=== PATIENT | male | born 1955 | race Two or more races ===

== ENCOUNTER 2025-02-05 11:27 | Inpatient (IN) | payer MEDICARE, SELFPAY ==
[2025-02-05 11:37] VITALS: BP 142/89; PULSE 100; RESP 18; TEMP 36.9; O2SAT 98; BMI 26.1
--- NOTE | 2025-02-05 11:49 | XR_ITS ---
Examination: CT abdomen and pelvis without contrast. Coronal 3-D reconstructions. Sagittal 2-D reconstructions. Date and time of exam:February 05, 2025, 1217 hours INDICATIONS: Lower abdominal pain with no bowel movement 2 days, difficulty urinating today CTDI: vol (mGy): 6.53 DLP: (mGycm): 415 Technique: Axial images of the abdomen have been obtained, 3 mm slice thickness Intravenous contrast material has not been administered. Low dose protocols were performed. One or more of the following dose reduction techniques were used; automated exposure control, adjustment of the mA and/or KV according to patient size, use of iterative reconstruction technique. Findings: No focal liver or splenic lesions Suspicious for tiny gallstones No pancreatic or adrenal mass Minimal bilateral hydronephrosis, no renal or ureteral calculi Aorta normal size Abundant air and stool in the right colon Normal appendix Colonic diverticulosis Distended urinary bladder, likely secondary to prostatomegaly, mediolateral dimension 6 cm Large fat-containing left inguinal hernia Prominent osteopenia IMPRESSION: Minimal bilateral hydronephrosis, likely secondary to distended urinary bladder Significant prostatomegaly, likely producing the distended urinary bladder
--- NOTE | 2025-02-05 11:49 | PD.EDRME ---
Rapid Medical Screening Exam RME Arrival date/time: 02/05/25 11:27 69-year-old male with no known medical history presents to the emergency room with a chief complaint of abdominal distention and pain x 3 days I have greeted and performed a focused initial assessment of this patient. A comprehensive ED assessment and evaluation of the patient, analysis of all test results, and completion of the medical decision making process will be conducted by additional ED providers. Chief Complaint: General Adult/Misc Complain Time Seen by Provider: 02/05/25 11:35 Vital signs: Vital Signs Temperature 98.5 F 02/05/25 11:37 Pulse Rate 100 02/05/25 11:37 Respiratory Rate 18 02/05/25 11:37 Blood Pressure 142/89 H 02/05/25 11:37 Pulse Oximetry (%) 98 02/05/25 11:37 Oxygen Delivery Method Room Air 02/05/25 11:37 Vital signs reviewed by provider: Yes
[2025-02-05 12:41] LABS: Collection Type, Urine Clean Catch
[2025-02-05 12:48] LABS: Bilirubin,Urine Negative (Negative); Blood,Urine Negative (Negative); Clarity,Urine Clear (Clear/Hazy); Color,Urine Yellow (Lt Yel-Yel); Glucose, Urine Negative (Negative); Ketones,Urine Negative (Negative); Leukocyte Esterase,Urine Negative (Negative); Nitrite,Urine Negative (Negative); PH,Urine 5.0 (5.0-7.0); Protein,Urine Negative (Neg - Trace); RBC,Urine 1 /hpf (0-3); Specific Gravity,Urine 1.011 (1.001-1.035); Squamous Epithelial Cell,Urine 1 /hpf (0-5); Urobilinogen,Urine Negative mg/dL (0.0-1.0); WBC,Urine 1 /hpf (0-5)
[2025-02-05 12:58] LABS: Basophils # (Auto) 0.0 Thou/mm3 (0.0-0.2); Basophils % (Auto) 0 % (0-2.5); Eosinophils # (Auto) 0.0 Thou/mm3 (0.0-0.5); Eosinophils % (Auto) 0 % (0-10); Hematocrit 42.9 % (41.0-53.0); Hemoglobin 14.6 g/dL (13.5-16.0); Immature Granulocytes Auto 0.08 Thou/mm3 (0.00-0.00); Lymphocytes # (Auto) 0.6 Thou/mm3 (1.0-4.8); Lymphocytes % (Auto) 4 % (10-50); Mean Corpuscular HGB Conc 34.0 g/dl (31.0-37.0); Mean Corpuscular Hemoglobin 29.0 pg (25.0-35.0); Mean Corpuscular Volume 85 fL (80-100); Monocytes # (Auto) 1.1 Thou/mm3 (0.0-0.8); Monocytes % (Auto) 7 % (0-12); Neutrophils # (Auto) 13.7 Thou/mm3 (1.8-7.7); Neutrophils % (Auto) 88 % (37-80); Nucleated Red Blood Cell # 0.00 Thou/mm3 (0.00-0.00); Nucleated Red Blood Cell % 0 /100 WBC (0); Platelet Count 220 Thou/mm3 (140-440); RDW Standard Deviation 38.2 fL (35.1-43.9); Red Blood Count 5.03 Miln/mm3 (4.50-5.90); White Blood Count 15.5 Thou/mm3 (3.8-10.6)
[2025-02-05 13:16] LABS: Alanine Aminotransferase 21 U/L (10-49); Albumin, Serum 4.5 gm/dL (3.4-4.8); Albumin/Globulin Ratio 1.5 (1.2-2.2); Alkaline Phosphatase 84 U/L (46-116); Anion Gap 16 (7-16); Aspartate Amino Transferase 16 U/L (0-34); BUN/Creatinine Ratio 9 Ratio (12-20); Bilirubin,Total 1.3 mg/dL (0.3-1.2); Blood Urea Nitrogen 79 mg/dL (9-23); Calcium 9.8 mg/dL (8.3-10.6); Calcium (Corrected) 9.8 mg/dL (8.5-10.1); Carbon Dioxide 19.4 mMol/L (20.0-31.0); Chloride 99 mMol/L (98-107); Creatinine (Component) 9.0 mg/dL (0.6-1.3); Estimated Creatinine Clearance 7.0 mL/min (>60); Globulin 3.0 gm/dL (2.3-3.5); Glucose 141 mg/dL (74-106); Lipase 34 U/L (12-53); Osmolality,Calculated 293 (275-295); Potassium 4.4 mMol/L (3.4-5.1); Sodium 134 mMol/L (136-145); Total Protein 7.5 gm/dL (5.7-8.2); eGFR 6 See Note
--- NOTE | 2025-02-05 13:26 | PD.EDADULT ---
ED General RME/HPI General Chief complaint: General Adult/Misc Complain Stated complaint: DIFF URINATING, NO BM X 2 DAYS; SENT BY [facility] [address] Time Seen by Provider: 02/05/25 11:35 Arrival date/time: 02/05/25 11:27 RME / HPI RME / HPI narrative: 02/05/25 11:27 69-year-old male with no known medical history presents to the emergency room with a chief complaint of abdominal distention and pain x 3 days I have greeted and performed a focused initial assessment of this patient. A comprehensive ED assessment and evaluation of the patient, analysis of all test results, and completion of the medical decision making process will be conducted by additional ED providers. Related Data Allergies Allergy/AdvReac Type Severity Reaction Status Date / Time No Known Allergies Allergy Verified 02/05/25 11:30 Course Orders Category Date Time Status Post Void Residual ONCE Care 02/05/25 11:[address] abdomen pelvis wo con Stat Exams 02/05/25 11:49 Completed CBC Stat Lab 02/05/25 12:43 Completed CMP [Comprehensive Metabolic Panel] Stat Lab 02/05/25 12:43 Received Lipase Stat Lab 02/05/25 12:43 Received UA [Urinalysis] Stat Lab 02/05/25 12:32 Completed Urine Culture Stat Lab 02/05/25 12:32 Received Vital Signs Vital signs: Vital Signs Temperature 98.5 F 02/05/25 11:37 Pulse Rate 100 02/05/25 11:37 Respiratory Rate 18 02/05/25 11:37 Blood Pressure 142/89 H 02/05/25 11:37 Pulse Oximetry (%) 98 02/05/25 11:37 Oxygen Delivery Method Room Air 02/05/25 11:37 Discharge Plan Patient/Caregiver Discharge Instructions Print Language: Polish
[2025-02-05 14:20] VITALS: BP 164/95; PULSE 105; RESP 18; TEMP 37.1; O2SAT 95
--- NOTE | 2025-02-05 15:07 | PD.EDADULT ---
ED General RME/HPI General Chief complaint: General Adult/Misc Complain Stated complaint: DIFF URINATING, NO BM X 2 DAYS; SENT BY [facility] Time Seen by Provider: 02/05/25 11:35 Arrival date/time: 02/05/25 11:27 Chief complaint is abdominal distention with pain, and inability to urinate a full stream over the past 3 to 4 days. Patient denies fever chills chest pain shortness of breath or difficulty breathing. Patient has no nausea or vomiting. RME / HPI RME / HPI narrative: 02/05/25 11:27 69-year-old male with no known medical history presents to the emergency room with a chief complaint of abdominal distention and pain x 3 days I have greeted and performed a focused initial assessment of this patient. A comprehensive ED assessment and evaluation of the patient, analysis of all test results, and completion of the medical decision making process will be conducted by additional ED providers. Related Data Allergies Allergy/AdvReac Type Severity Reaction Status Date / Time No Known Allergies Allergy Verified 02/05/25 11:30 Review of Systems Review of Systems Narrative Review of Systems: GEN: No fever, no chills, no weight loss EYES: No discharge, no visual changes, no pain HEENT: No ear pain, no congestion, no sore throat PULM: No shortness of breath, no cough, no congestion CV: No chest pain, no dyspnea on exertion, no palpitations GI: No nausea, no vomiting, no diarrhea, + pain, no constipation : No frequency, no urgency, no dysuria MUSC/SKEL: No joint pain, no back pain SKIN: No rash PSYCH: No hallucinations, no depression HEME/LYMPH: No easy bleeding or bruising tendencies NEURO: No weakness, no headache Past Medical History Past Medical History CARDIAC: Negative Congestive Heart Failure RESPIRATORY: Negative Chronic Obstructive Pulmonary Disease (COPD) GENITOURINARY: Negative Renal Disease ENDOCRINE: Negative Diabetes Mellitus Type 1 or Diabetes Mellitus Type 2 Social History SMOKING STATUS: Never smoker SUBSTANCE USE: does not use ED Exam Narrative Physical exam: [General: Mild discomfort but not in any acute distress Head normocephalic HEENT: Within acceptable limits Neck is supple nontender Chest equal chest rise nontender to palpation Respiratory: Clear to auscultation no wheezes crackles or rubs CV: Rate rhythm is regular no murmurs rubs or clicks Abdomen is mildly distended soft mildly tender, positive bowel sounds all 4 quadrants Back: No CVA tenderness no spinous process tenderness from cervical spine thoracic and lumbar spine Skin: Intact no petechiae rash induration ulceration or crepitus Extremities: Moving all extremity against resistance cap refill less than 2 seconds neurosensory intact Neuro: Awake alert oriented x3 Glascow coma 15 no focal deficits] Course Course Course Narrative: Patient's obstructive uropathy is severe enough causing the creatinine to be 9.7 at this time patient's case discussed with Dr. Gregory Hightower, resident for Dr. Calixto who agrees to accept the patient for admission. Patient is agreement with this plan Quality Measures none Orders Category Date Time Status Boone [Urinary Catheter] QS Care 02/05/25 14:59 Active Post Void Residual ONCE Care 02/05/25 11:[address] abdomen pelvis wo con Stat Exams 02/05/25 11:49 Completed CBC Stat Lab 02/05/25 12:43 Completed CMP [Comprehensive Metabolic Panel] Stat Lab 02/05/25 12:43 Completed Lipase Stat Lab 02/05/25 12:43 Completed UA [Urinalysis] Stat Lab 02/05/25 12:32 Completed Urine Culture Stat Lab 02/05/25 12:32 Received Lidocaine Jelly 2% Urojet [Xylocaine Jelly 2% Urojet] Med 02/05/25 15:06 Discontinued See Dose Instructions TOP X1 ONE Sodium Chloride 0.9% 1000 ml [Ns] 1,000 ml Med 02/05/25 15:36 Active IV 85 mls/hr Vital Signs Vital signs: Vital Signs Temperature 98.5 F 02/05/25 11:37 Pulse Rate 100 02/05/25 11:37 Respiratory Rate 18 02/05/25 11:37 Blood Pressure 142/89 H 02/05/25 11:37 Pulse Oximetry (%) 98 02/05/25 11:37 Oxygen Delivery Method Room Air 02/05/25 11:37 Discharge Plan Plan Patient Disposition: Other Care w/in Hosp ([facility]) Prescriptions/Referrals Referrals: Tomas Mantilla MD [Primary Care Provider, Family Practice] - In 1 week Problem List Clinical Impression: Obstruction, uropathy, JORGE LUIS (acute kidney injury) Patient/Caregiver Discharge Instructions Print Language: Faroese Stand Alone Forms: She Award Info., Patient Portal Info Letter PA/FERRYBOAT PILOT Supervising Physician DAMON Supervising Physician: Lazaro LAMBP [facility] Clinical Information Provided by: patient Medical Records reviewed [facility] Meds/Rx considered, not ordered None Labs/Rad/Tests considered, not ordered None Labs Labs: interpreted by me Lab(s) Interpretation(s): CBC shows a mild leukocytosis of 15.5. H&H is unremarkable no thrombocytopenia. CMP shows a sodium 134 CO2 of 19.4 BUN of 79 creatinine of 9.0. Glucose of 141. T. bili at 1.3 no transaminitis. Urine is unremarkable for urinary tract infection. Lipase within acceptable limits. Imaging Imaging interpretation: interpreted by [facility] Interpretation(s): CT shows a moderate bilateral hydronephrosis secondary to urine retention of the enlarged bladder. Medication Administration(s) Medication Administration History Sodium Chloride (Ns) 1,000 mls @ 85 mls/hr IV .[id number] ANDREA Stop: 03/07/25 15:35 Last Admin: 02/05/25 15:48 Dose: 85 mls/hr Documented By: EF Discontinued Medications Lidocaine HCl (Lidocaine Jelly 2% (Urojet) 10 Ml Tube) 0 ml TOP X1 ONE Stop: 02/05/25 15:07 Last Admin: 02/05/25 15:22 Dose: 10 ml Documented By: EF
[2025-02-05] MEDS: LIDOCAINE JELLY 2% (Urojet) 10 ML TUBE TOP (15:22)
[2025-02-05] MEDS: SODIUM CHLORIDE 0.9% 1000 ML 1,000 ML 85 ML IV (15:48)
[2025-02-05 16:20] VITALS: BP 139/81; PULSE 85; TEMP 36.3; O2SAT 92
--- NOTE | 2025-02-05 16:23 | PD.RESHP ---
Documentation for date of: 02/05/25 HPI History of Present Illness Chief complaint: Decreased urine output and abdominal pain History of present illness: A 69-year-old male with no significant past medical history presented to the hospital with chief complaints of lower abdominal pain and decreased urine output. Patient does not follow any primary care provider and does not take any medication. He was noted to have urinary problems since many months but does not want to follow-up with any doctor. Since last week, patient noted to have urinary retention and was able to urinate very minimal amount and also started to develop abdominal pain which got worsened for which patient went to see primary care doctor in [facility]. Patient was noted to have severe abdominal distention and tenderness for which she was referred to our emergency department. In the ED, Boone catheter was placed following which 1.1 L of urine is drained and noted to have significant improvement in the abdominal pain ED course: - Vitals at the time of admission are stable except for mildly elevated blood pressures 142/89 mmHg - Labs at the time of admission are significant for WBC 15.5, sodium 134, bicarb 19.4, BUN 79, creatinine 9, glucose 141 - Abdomen/pelvis CT Showed minimal bilateral hydronephrosis, likely secondary to distended urinary bladder. Noted significant prostamegaly -Patient is admitted in the hospital for JORGE LUIS, likely secondary to obstructive uropathy from BPH Past medical history: Not significant Past surgical history: Not significant Social history: Denies smoking, other illicit drug abuse. Social drinker Allergies: NKDA Review of Systems Review of Systems Systems Reviewed: All systems reviewed, normal except as documented Exam Vital Signs Temp Pulse Resp BP Pulse Ox O2 Del Method 98.8 F 105 H 18 164/95 H 95 Room Air 02/05/25 14:20 02/05/25 14:20 02/05/25 14:20 02/05/25 14:20 02/05/25 14:20 02/05/25 14:20 Narrative Exam General: Awake. HEENT: Normocephalic, atraumatic, mucous membranes moist. Heart: Regular rate and rhythm, no murmurs. noted deformity in the chest Lungs: Clear to auscultation with no wheezing or crackles. Abdomen: Soft, nondistended, nontender, positive bowel sounds. ?No guarding or rebound tenderness. Neurologic: Alert and oriented x3, no gross neurological deficit, and patient able to move all 4 extremities. Extremities: No edema. Skin: No rash or ecchymoses. Results: Labs 02/06/25 04:50 02/06/25 15:48 Labs: Short CBC 02/05/25 Range/Units 12:43 WBC 15.5 H (3.8-10.6) Thou/mm3 Hgb 14.6 (13.5-16.0) g/dL Hct 42.9 (41.0-53.0) % Plt Count 220 (140-440) Thou/mm3 BMP 02/05/25 12:43 Sodium 134 L Potassium 4.4 Chloride 99 Carbon Dioxide 19.4 L BUN 79 H Creatinine 9.0 H* Glucose 141 H Calcium 9.8 Liver Function 02/05/25 Range/Units 12:43 Total Bilirubin 1.3 H (0.3-1.2) mg/dL AST 16 (0-34) U/L ALT 21 (10-49) U/L Alkaline Phosphatase 84 (46-116) U/L Albumin 4.5 (3.4-4.8) gm/dL Urine 02/05/25 Range/Units 12:32 Urine Color Yellow (Lt Yel-Yel) Urine Clarity Clear (Clear/Hazy) Urine pH 5.0 (5.0-7.0) Ur Specific [place] 1.011 (1.001-1.035) Urine Protein Negative (Neg - Trace) Urine Glucose (UA) Negative (Negative) Quality Measures Quality Measures none Advance care planning discussed with:: patient Medications Home Medications and Allergies Home Medications ?Medication ?Instructions ?Recorded ?Confirmed ?Type No Known Home Medications 02/05/25 02/05/25 History Allergies Allergy/AdvReac Type Severity Reaction Status Date / Time No Known Allergies Allergy Verified 02/05/25 11:30 Visit Medications Sodium Chloride (Ns) 1,000 mls @ 85 mls/hr IV .[id number] ANDREA Stop: 03/07/25 15:35 Last Admin: 02/05/25 15:48 Dose: 85 mls/hr Discontinued Medications Lidocaine HCl (Lidocaine Jelly 2% (Urojet) 10 Ml Tube) 0 ml TOP X1 ONE Stop: 02/05/25 15:07 Last Admin: 02/05/25 15:22 Dose: 10 ml Assessment & Plan Plan A 69-year-old male with no significant past medical history presented to the hospital with chief complaints of lower abdominal pain and decreased urine output. # JORGE LUIS 2/2 to obstruction/prostamegaly - Presented with chief complaints of lower abdominal pain and decreased urine output. - Noted to have urinary problems since many months but does not want to follow-up with any doctor. Since last week, patient noted to have urinary retention and was able to urinate very minimal amount and also started to develop abdominal pain which got worsened for which patient went to see primary care doctor in [facility]. - Patient was noted to have severe abdominal distention and tenderness for which she was referred to our emergency department. - In the ED, Boone catheter was placed following which 1.1 L of urine is drained and noted to have significant improvement in the abdominal pain - Vitals at the time of admission are stable except for mildly elevated blood pressures 142/89 mmHg - Labs at the time of admission are significant for WBC 15.5, sodium 134, bicarb 19.4, BUN 79, creatinine 9, glucose 141 - Abdomen/pelvis CT Showed minimal bilateral hydronephrosis, likely secondary to distended urinary bladder. Noted significant prostamegaly Plan - Will continue Boone catheter - Strict intake and output - Will continue to monitor renal functions - Started on tamsulosin 0.4 mg daily and finasteride 5 mg daily - Will continue maintenance fluids, NS @ 85ml/hr - Ultrasound kidneys were ordered - Will avoid nephrotoxic medications and renally dose medications # Metabolic acidosis - Bicarb at the time of admission is 19.4 - Likely from the JORGE LUIS Plan -Will continue to monitor renal functions # Leukocytosis - WBC at the time of admission is 15.5 - Patient does not have any symptoms suggestive of infection, likely reactive in the setting of the pain and urinary retention Plan - Will continue to monitor CBC Hospital Maintenance: Dispo: Medsurg DVT ppx: SCD GI ppx: not needed Diet: Renal IV lines: Peripheral Code status: Full Patient plan of care was discussed with the attending physician, Dr. Marily Chiang, PGY2 Attending Provider Attestation/Addendum After examination of the patient and review of the clinical data I feel that this patient needs admission to the hospital for further treatment/evaluation. I have discussed and was present for the essential components of the history, physical examination, diagnosis, and treatment plan with the resident. I agree with the patient's care as documented by the resident and amended herein by me. Valerio Calixto DO. Although this document has been carefully reviewed, there may still be some phonetic and other typographical errors. These errors are purely grammatical due to imperfections in the software program and should not be construed in any way to compromise the substance of the patient's medical care during this visit.
--- NOTE | 2025-02-05 17:13 | XR_ITS ---
Examination: Retroperitoneal ultrasound, complete Technique: Multiple high resolution grayscale images of the retroperitoneum obtained, including kidneys and bladder. Exam date and time:February 05, 2025, 1727 hrs. Indications: Difficulty urinating today, significant prostatomegaly on CT pelvis study today Findings: Right kidney 11.8 cm cortex 1.8 cm Minimal hydronephrosis Left kidney 11.2 cm cortex 2.0 cm Mild right moderate left renal scarring Contracted urinary bladder Prominent prostatomegaly 99 cc no prostate nodules Impression: Minimal left hydronephrosis Mild right moderate left renal scarring Significant prostatomegaly, consider transrectal prostate sonography follow-up
[2025-02-05 18:23] VITALS: BP 127/74; PULSE 90; RESP 18; TEMP 36.3; O2SAT 96
[2025-02-05] MEDS: FINASTERIDE 5 MG TABLET PO (18:44)
[2025-02-05] MEDS: TAMSULOSIN HCL 0.4 MG CAPSULE PO (18:45)
[2025-02-05 19:30] VITALS: BMI 25.2
[2025-02-05 20:00] VITALS: BP 153/91; PULSE 91; RESP 20; TEMP 36.8; O2SAT 97
[2025-02-06] VITALS: BP 120/71; PULSE 85; RESP 18; TEMP 36.1; O2SAT 95
[2025-02-06] MEDS: SODIUM CHLORIDE 0.9% 1000 ML 1,000 ML 85 ML IV (03:55)
[2025-02-06 04:00] VITALS: BP 93/66; PULSE 75; RESP 19; TEMP 36.1; O2SAT 95
[2025-02-06 05:38] LABS: Basophils # (Auto) 0.0 Thou/mm3 (0.0-0.2); Basophils % (Auto) 0 % (0-2.5); Eosinophils # (Auto) 0.2 Thou/mm3 (0.0-0.5); Eosinophils % (Auto) 1 % (0-10); Hematocrit 39.9 % (41.0-53.0); Hemoglobin 13.6 g/dL (13.5-16.0); Immature Granulocytes Auto 0.06 Thou/mm3 (0.00-0.00); Lymphocytes # (Auto) 0.6 Thou/mm3 (1.0-4.8); Lymphocytes % (Auto) 6 % (10-50); Mean Corpuscular HGB Conc 34.1 g/dl (31.0-37.0); Mean Corpuscular Hemoglobin 29.6 pg (25.0-35.0); Mean Corpuscular Volume 87 fL (80-100); Monocytes # (Auto) 0.8 Thou/mm3 (0.0-0.8); Monocytes % (Auto) 8 % (0-12); Neutrophils # (Auto) 9.2 Thou/mm3 (1.8-7.7); Neutrophils % (Auto) 85 % (37-80); Nucleated Red Blood Cell # 0.00 Thou/mm3 (0.00-0.00); Nucleated Red Blood Cell % 0 /100 WBC (0); Platelet Count 215 Thou/mm3 (140-440); RDW Standard Deviation 39.7 fL (35.1-43.9); Red Blood Count 4.60 Miln/mm3 (4.50-5.90); White Blood Count 10.9 Thou/mm3 (3.8-10.6)
[2025-02-06 06:02] LABS: Alanine Aminotransferase 20 U/L (10-49); Albumin, Serum 3.7 gm/dL (3.4-4.8); Albumin/Globulin Ratio 1.4 (1.2-2.2); Alkaline Phosphatase 75 U/L (46-116); Anion Gap 12 (7-16); Aspartate Amino Transferase 15 U/L (0-34); BUN/Creatinine Ratio 18 Ratio (12-20); Bilirubin,Total 1.2 mg/dL (0.3-1.2); Blood Urea Nitrogen 45 mg/dL (9-23); Calcium 9.1 mg/dL (8.3-10.6); Calcium (Corrected) 9.3 mg/dL (8.5-10.1); Carbon Dioxide 24.2 mMol/L (20.0-31.0); Cardiac Risk Estimate 3.5 RATIO (4.0-6.7); Chloride 113 mMol/L (98-107); Cholesterol 122 mg/dL (132-200); Creatinine (Component) 2.5 mg/dL (0.6-1.3); Estimated Creatinine Clearance 25.3 mL/min (>60); Globulin 2.6 gm/dL (2.3-3.5); Glucose 113 mg/dL (74-106); HDL Cholesterol 35 mg/dL (40-60); LDL Cholesterol,Calculated 68 mg/dL (0-130); Magnesium 2.5 mg/dL (1.6-2.6); Osmolality,Calculated 308 (275-295); Phosphorous 3.5 mg/dL (2.4-5.1); Potassium 4.2 mMol/L (3.4-5.1); Sodium 149 mMol/L (136-145); Thyroid Stimulating Hormone 1.34 uIU/mL (0.55-4.78); Total Protein 6.3 gm/dL (5.7-8.2); Triglycerides 93 mg/dL (30-150); eGFR 27 See Note
[2025-02-06 08:00] VITALS: BP 98/57; PULSE 78; RESP 16; TEMP 36.5; O2SAT 93
[2025-02-06] MEDS: TAMSULOSIN HCL 0.4 MG CAPSULE PO (08:13)
[2025-02-06] MEDS: FINASTERIDE 5 MG TABLET PO (08:13)
--- NOTE | 2025-02-06 09:31 | PC.SS ---
Follow up note: Waiting for kidney function to improve.
[2025-02-06 09:59] LABS: Sodium 148 mMol/L (136-145)
[2025-02-06] MEDS: RINGERS LACTATED 1000 ML 1,000 ML 75 ML IV (10:32)
[2025-02-06 12:00] VITALS: BP 117/71; PULSE 69; RESP 16; TEMP 36.2; O2SAT 96
[2025-02-06 13:28] LABS: Creatine Kinase 39 U/L (34-171); Sodium 149 mMol/L (136-145)
--- NOTE | 2025-02-06 13:47 | ESPR_ITS ---
<Statement entered by Estefany Solitario MD - 02/15/25 08:16> I reviewed above note and agree with findings and plans. I have also personally examined the patient with medicine team and went over assessment and plan with medical team including video intern and resident physician. <Statement entered by Kobe Dyson MD - 02/06/25 15:30> Patient seen and assessed in hospital bed denies having any concerning symptoms at this time. Patient had 6.3 L of urine output secondary to Eldridge placement and kidney function is largely improved. Patient has obstructive uropathy and postrenal JORGE LUIS which has improved with the Eldridge placement. Consulting urology regarding further imaging studies versus need for any procedures while inpatient. Will continue monitoring the patient and expect discharge in the next 24 to 48 hours. I have personally seen and examined the patient. I agree with the resident's assessment and plan as documented below. Kobe Dyson DO PGY-2 Internal Medicine - G[facility] Documentation for date of: 02/06/25 Subjective Subjective Interval history: No Overnight events. Labs reviewed and patient examined at the bedside. Patient complains of minimal lower abdominal pain. Urine color in the Eldridge bag was yellow and clear and urine output was 6.3 L. Patient's creatinine decreased from 9.0 to 2.5, eGFR increased from 6 to 27. BUN 45. Based on rapid improvement improvement after Eldridge catheter placement and the findings of prostamegaly from CT abdomen and pelvis, it is likely that the patient has a postrenal JORGE LUIS. Consulted urology, Dr. Monte, for possible future treatment for patient's prostamegaly. Patient's IV fluids changed from normal saline to LR 75 mL/h due to hypernatremia. Denies chest pain, palpation, SOB, N/V, fevers or chills. Exam Vital Signs Temp Pulse Resp BP Pulse Ox O2 Del Method 97.2 F 69 16 117/71 96 Room Air 02/06/25 12:00 02/06/25 12:00 02/06/25 12:00 02/06/25 12:00 02/06/25 12:00 02/06/25 12:00 Narrative Exam General: No acute distress, well nourished, AAO x3 Eye: PERRL, EOMI, normal conjunctiva, no scleral icterus HENT: Normocephalic, atraumatic, hearing intact to conversation at normal volume, moist oral mucosa Neck: Supple, non-tender, no JVD, no lymphadenopathy Lungs: Non-labored respirations, symmetric chest rise, Clear to auscultate bilaterally, No wheezing, rhonchi, crackles Heart: Peripheral pulses intact bilaterally, Regular Rate and Rhythm. Abdomen: Soft, non-distended, no palpable masses, Lower abdominal pain on palpation. Musculoskeletal: Normal range of motion and strength, No cyanosis or edema, No visible joint swelling Skin: Skin is warm, dry, no rashes or lesions. Psychiatric: Cooperative, appropriate mood and affect, Awake and alert, not agitated Neuro: Cranial nerves II-XII grossly intact. Sensations intact to light touch. Objective Labs 02/06/25 04:50 02/06/25 12:25 Labs: Laboratory Results - last 24 hr 02/05/25 02/06/25 02/06/25 12:43 04:50 08:51 WBC 10.9 H RBC 4.60 Hgb 13.6 Hct 39.9 L MCV 87 MCH 29.6 MCHC 34.1 RDW Std Deviation 39.7 Plt Count 215 Neut % (Auto) 85 H Lymph % (Auto) 6 L [place] % (Auto) 8 Eos % (Auto) 1 Baso % (Auto) 0 Neut # (Auto) 9.2 H Lymph # (Auto) 0.6 L [place] # (Auto) 0.8 Eos # (Auto) 0.2 Baso # (Auto) 0.0 Immature Gran # (Auto) 0.06 H Absolute Nucleated RBC 0.00 Immature Gran % 1 H Nucleated RBC % 0 Sodium 134 L 149 H D 148 H Potassium 4.4 4.2 Chloride 99 113 H Carbon Dioxide 19.4 L 24.2 Anion Gap 16 12 BUN 79 H 45 H Creatinine 9.0 H* 2.5 H D Estim Creat Clear Calc 7.0 L 25.3 L eGFR 6 L* 27 L BUN/Creatinine Ratio 9 L 18 Glucose 141 H 113 H Calculated Osmolality 293 308 H Calcium 9.8 9.1 Corrected Calcium 9.8 9.3 Phosphorus 3.5 Magnesium 2.5 Total Bilirubin 1.3 H 1.2 AST 16 15 ALT 21 20 Alkaline Phosphatase 84 75 Total Creatine Kinase Total Protein 7.5 6.3 Albumin 4.5 3.7 D Globulin 3.0 2.6 Albumin/Globulin Ratio 1.5 1.4 Triglycerides 93 Cholesterol 122 L LDL Cholesterol, Calc 68 HDL Cholesterol 35 L Cholesterol/HDL Ratio 3.5 L Lipase 34 TSH 1.34 02/06/25 12:25 WBC RBC Hgb Hct MCV MCH MCHC RDW Std Deviation Plt Count Neut % (Auto) Lymph % (Auto) [place] % (Auto) Eos % (Auto) Baso % (Auto) Neut # (Auto) Lymph # (Auto) [place] # (Auto) Eos # (Auto) Baso # (Auto) Immature Gran # (Auto) Absolute Nucleated RBC Immature Gran % Nucleated RBC % Sodium 149 H Potassium Chloride Carbon Dioxide Anion Gap BUN Creatinine Estim Creat Clear Calc eGFR BUN/Creatinine Ratio Glucose Calculated Osmolality Calcium Corrected Calcium Phosphorus Magnesium Total Bilirubin AST ALT Alkaline Phosphatase Total Creatine Kinase 39 Total Protein Albumin Globulin Albumin/Globulin Ratio Triglycerides Cholesterol LDL Cholesterol, Calc HDL Cholesterol Cholesterol/HDL Ratio Lipase TSH Quality Measures Quality Measures none Advance care planning discussed with:: patient Assessment & Plan Assessment Current Active Medications: Generic Name Dose Route Start Last Admin Trade Name Freq PRN Reason Stop Dose Admin Acetaminophen 650 mg 02/05/25 16:20 Acetaminophen 325 Mg Tablet PO 03/07/25 16:19 Q6H PRN Fever >101.5 Finasteride 5 mg 02/05/25 18:30 02/06/25 08:13 Finasteride 5 Mg Tablet PO 03/07/25 18:29 5 mg QDAY ANDREA Administration Lactated Ringer's 1,000 mls @ 75 mls/hr 02/06/25 10:19 02/06/25 10:32 Lactated Ringers IV 02/06/25 23:38 75 mls/hr .[id number] ONE Administration Ondansetron HCl 4 mg 02/05/25 16:20 Ondansetron Inj 2 Mg/Ml Inj 2 Ml IVP 03/07/25 16:19 Q6H PRN NAUSEA OR VOMITING Protocol Sennosides 1 tab 02/06/25 09:00 02/06/25 08:12 Senna Tablet PO 03/08/25 08:59 1 tab QDAY ANDREA Administration Protocol Tamsulosin HCl 0.4 mg 02/05/25 18:30 02/06/25 08:13 Tamsulosin Hcl 0.4 Mg Capsule PO 03/07/25 18:29 0.4 mg QDAY ANDREA Administration Plan A 69-year-old male with no significant past medical history presented to the hospital with chief complaints of lower abdominal pain and decreased urine output. # JORGE LUIS, Post renal # Prostamegaly - Presented with chief complaints of lower abdominal pain and decreased urine output. - Noted to have urinary problems since many months but does not want to follow- up with any doctor. Since last week, patient noted to have urinary retention and was able to urinate very minimal amount and also started to develop abdominal pain which got worsened for which patient went to see primary care doctor in [facility]. - Patient was noted to have severe abdominal distention and tenderness for which she was referred to our emergency department. - In the ED, Eldridge catheter was placed following which 1.1 L of urine is drained and noted to have significant improvement in the abdominal pain - Vitals at the time of admission are stable except for mildly elevated blood pressures 142/89 mmHg - Labs at the time of admission are significant for WBC 15.5, sodium 134, bicarb 19.4, BUN 79, creatinine 9, eGFR:6, glucose 141 - Abdomen/pelvis CT Showed minimal bilateral hydronephrosis, likely secondary to distended urinary bladder. Noted significant prostamegaly -Currently, BUN: 45, Cr: 2.5, eGFR:27, Urine Output: 6.3 L -Renal US (02/05/2025): Minimal left hydronephrosis, Mild right moderate left renal scarring, Significant prostatomegaly, consider transrectal prostate sonography follow-up Plan - Will continue Eldridge catheter - Strict intake and output - Will continue to monitor renal functions - Started on tamsulosin 0.4 mg daily and finasteride 5 mg daily - Will continue maintenance fluids, LR @ 75ml/hr - Will avoid nephrotoxic medications and renally dose medications -Consulted Urology, Dr. Monte, Appreciate recommendations #Hypernatremia -Patient had Na of 134 on admission, Now 149 within a day -Likely due to rapid decompression of kidney from eldridge draining 6.3L of urine causing osmotic diuresis. As patient is losing large amounts of free water from the urine, this have caused rapid hpernatremia. -NS IVF may have contributed to the hypernatremia. Plan: -Discontinued NS and replaced it with IVF LR 75ml/hr # Metabolic acidosis- Resolved - Bicarb at the time of admission is 19.4 - Likely from the JORGE LUIS Plan -Will continue to monitor renal functions # Leukocytosis - Resolving - WBC at the time of admission is 15.5 - Patient does not have any symptoms suggestive of infection, likely reactive in the setting of the pain and urinary retention Plan - Will continue to monitor CBC Hospital Maintenance: Dispo: Medsurg DVT ppx: SCD GI ppx: not needed Diet: Renal IV lines: Peripheral Code status: Full Assessment and plan discussed with my attending physician Dr. Solitario and Dr. Dyson, PGY-2 Dr. Camarena (PGY-1) - Internal medicine resident
--- NOTE | 2025-02-06 15:33 | PC.SS ---
SS met with patient regarding his d/c plan. Pt is alert/oriented. Pt was admitted for JORGE LUIS. Pt confirmed demographic and contact information is correct on facesheet. Pt resides with his nieces. Pt ambulates independently without assistance or DME. Pt is ok with all ADLs. Patient?s pharmacy of choice is [facility] [address]. Pt named his niece, Tiera Henriquez medical decision maker if he is unable. SS provided verbal options for d/c to home or SNF. Patient?s choice is to return home upon d/c. Pt states he is not diabetic and he is not on dialysis. Pt states he has not followed up with PCP. SS provided verbal choice to follow up with PCP at [facility], [facility], [facility], or other Community Clinics. Patient states his dtr will arranged his appointment for PCP. SS followed up with his dtr, Tiera who states she will establish patient with PCP at [facility]. D/C plan: Return home Next of Kin: Tiera Henriquez dtr, phone# [phone] PCP: Will establish at [facility] Address: Correct on facesheet
[2025-02-06 16:00] VITALS: BP 111/67; PULSE 91; RESP 16; TEMP 36.1; O2SAT 93
--- NOTE | 2025-02-06 16:04 | PC.NURSE ---
Dr. Monte in to see patient
[2025-02-06 16:06] LABS: Sodium 150 mMol/L (136-145)
[2025-02-06 20:00] VITALS: BP 119/67; PULSE 75; RESP 18; TEMP 36.3; O2SAT 95
[2025-02-06 20:04] LABS: Sodium 142 mMol/L (136-145)
[2025-02-07] VITALS: BP 111/70; PULSE 63; RESP 18; TEMP 36.1; O2SAT 96
[2025-02-07 04:00] VITALS: BP 99/65; PULSE 63; RESP 18; TEMP 36.1; O2SAT 96
[2025-02-07 05:30] LABS: Basophils # (Auto) 0.0 Thou/mm3 (0.0-0.2); Basophils % (Auto) 0 % (0-2.5); Eosinophils # (Auto) 0.3 Thou/mm3 (0.0-0.5); Eosinophils % (Auto) 3 % (0-10); Hematocrit 39.2 % (41.0-53.0); Hemoglobin 13.1 g/dL (13.5-16.0); Immature Granulocytes Auto 0.06 Thou/mm3 (0.00-0.00); Lymphocytes # (Auto) 1.4 Thou/mm3 (1.0-4.8); Lymphocytes % (Auto) 14 % (10-50); Mean Corpuscular HGB Conc 33.4 g/dl (31.0-37.0); Mean Corpuscular Hemoglobin 30.0 pg (25.0-35.0); Mean Corpuscular Volume 90 fL (80-100); Monocytes # (Auto) 1.0 Thou/mm3 (0.0-0.8); Monocytes % (Auto) 10 % (0-12); Neutrophils # (Auto) 7.3 Thou/mm3 (1.8-7.7); Neutrophils % (Auto) 72 % (37-80); Nucleated Red Blood Cell # 0.00 Thou/mm3 (0.00-0.00); Nucleated Red Blood Cell % 0 /100 WBC (0); Platelet Count 230 Thou/mm3 (140-440); RDW Standard Deviation 41.0 fL (35.1-43.9); Red Blood Count 4.37 Miln/mm3 (4.50-5.90); White Blood Count 10.1 Thou/mm3 (3.8-10.6)
[2025-02-07 06:28] LABS: Alanine Aminotransferase 23 U/L (10-49); Albumin, Serum 3.4 gm/dL (3.4-4.8); Albumin/Globulin Ratio 1.4 (1.2-2.2); Alkaline Phosphatase 67 U/L (46-116); Anion Gap 9 (7-16); Aspartate Amino Transferase 13 U/L (0-34); BUN/Creatinine Ratio 17 Ratio (12-20); Bilirubin,Total 1.1 mg/dL (0.3-1.2); Blood Urea Nitrogen 20 mg/dL (9-23); Calcium 8.5 mg/dL (8.3-10.6); Calcium (Corrected) 9.0 mg/dL (8.5-10.1); Carbon Dioxide 29.1 mMol/L (20.0-31.0); Chloride 109 mMol/L (98-107); Creatinine (Component) 1.2 mg/dL (0.6-1.3); Estimated Creatinine Clearance 52.8 mL/min (>60); Globulin 2.5 gm/dL (2.3-3.5); Glucose 127 mg/dL (74-106); Osmolality,Calculated 297 (275-295); Potassium 4.2 mMol/L (3.4-5.1); Sodium 147 mMol/L (136-145); Total Protein 5.9 gm/dL (5.7-8.2); eGFR > 60 See Note
[2025-02-07 07:54] VITALS: BP 121/69; PULSE 57; RESP 18; TEMP 35.8; O2SAT 96
--- NOTE | 2025-02-07 07:55 | ESCONSULT_ITS ---
History of Present Illness Data of Consult Consult date: 02/07/25 Requesting Physician: Bobby Calixto DO Primary Care Provider: Tomas Mantilla MD Consult Narrative Reason for consult: JORGE LUIS History of present illness: Mr. Marin is a 69-year-old male with no significant past medical history presented to the hospital with chief complaints of lower abdominal pain and decreased urine output. Patient does not follow any primary care provider and does not take any medication. He was noted to have urinary problems since many months but does not want to follow-up with any doctor. Since last week, patient noted to have urinary retention and was able to urinate very minimal amount and also started to develop abdominal pain which got worsened for which patient went to see primary care doctor in [facility]. Patient was noted to have severe abdominal distention and tenderness for which she was referred to our emergency department. In the ED, Boone catheter was placed following which 1.1 L of urine is drained and noted to have significant improvement in the abdominal pain ED course: - Vitals at the time of admission are stable except for mildly elevated blood pressures 142/89 mmHg - Labs at the time of admission are significant for WBC 15.5, sodium 134, bicarb 19.4, BUN 79, creatinine 9, glucose 141 - Abdomen/pelvis CT Showed minimal bilateral hydronephrosis, likely secondary to distended urinary bladder. Noted significant prostamegaly -Patient is admitted in the hospital for JORGE LUIS, likely secondary to obstructive uropathy from BPH Renal consultation requested for JORGE LUIS. Patient currently seen in medical floor. Since last night to now the creatinine markedly improved after Boone catheter was inserted. Renal ultrasound showed 96 cm prostate which is consistent with severe enlarged prostate. cc:: cc: Bobby Calixto DO Review of Systems Review of Systems Narrative Review of Systems: CONSTITUTIONAL: Patient denies any fever, chills. HEENT: Denies any visual disturbances or hearing problems. CARDIOVASCULAR: Patient denies any chest pain, shortness of breath, swelling in the lower extremities. PULMONARY: Patient denies any shortness of breath, cough. GASTROINTESTINAL: Patient denies any abdominal pain, constipation, nausea, vomiting, diarrhea. GENITOURINARY: Complaining of urinary retention SKIN: Denies any rash. MUSCULOSKELETAL: Denies any muscular skeletal problems of joint pains. NEUROLOGICAL: Denies any neurological problems of strokes, seizures or confusion. Denies any memory problems. PSYCHIATRIC: Denies any depression or anxiety. LYMPHATICS : No lymphadenopathy Past Medical History Past Medical History NEUROLOGIC: Negative Neurological Disorders CARDIAC: Negative Cardiac Disorders or Congestive Heart Failure RESPIRATORY: Negative Respiratory Disorders or Chronic Obstructive Pulmonary Disease (COPD) GASTROINTESTINAL: Negative Gastrointestinal Disorders GENITOURINARY: Negative Genitourinary Disorders or Renal Disease MUSCULOSKELETAL: Negative Musculoskeletal Disorders ENT: Negative History of ENT Problems ENDOCRINE: Negative Endocrine Disorders, Diabetes Mellitus Type 1 or Diabetes Mellitus Type 2 HEMATOLOGIC: Negative Blood Disorders OTHER HISTORY: Negative Autoimmune Disease, Anesthesia Reactions, Organ Transplant, MRSA, Clostridium Difficile or Cancer Family History FAMILY HISTORY: Negative Family Cardiac Disorders Surgical History SURGICAL: Negative Cardiac Surgery, Endocrine Surgery, Ear Surgery, Abdominal Surgery, Penile Implant, Nephrectomy, Joint Replacement, Neurologic Surgery, Mastectomy, Vasectomy or Organ Transplant Social History SMOKING STATUS: Never smoker SUBSTANCE USE: does not use Meds Home Medications and Allergies Allergies Allergy/AdvReac Type Severity Reaction Status Date / Time No Known Allergies Allergy Verified 02/05/25 11:30 Exam Vital Signs Temp Pulse Resp BP Pulse Ox O2 Del Method 36.1 C 63 18 99/65 96 Room Air 02/07/25 04:00 02/07/25 04:00 02/07/25 04:00 02/07/25 04:00 02/07/25 04:00 02/07/25 04:00 Narrative Exam GENERAL APPEARANCE: Patient seems to be comfortable, adequately hydrated and nourished. HEENT: EOMI, PERRLA NECK: Neck supple, no JVD or bruit CARDIOVASCULAR: Heart regular, no murmurs LUNGS/CHEST: Chest clear to auscultation. No rales, rhonchi, wheezing ABDOMEN: Soft, nontender, nondistended. No masses. Normal bowel sounds. Patient has Boone catheter EXTREMITIES: No edema, clubbing or cyanosis. SKIN: Skin exam normal without any rashes MUSCULOSKELETAL: Musculoskeletal exam normal PSYCHIATRIC: Normal mood, affect LYMPHATICS: No lymphadenopathy noted NEUROLOGICAL : No neurological deficits Results Labs 02/07/25 05:07 02/08/25 05:00 Labs: Short CBC 02/07/25 Range/Units 05:07 WBC 10.1 (3.8-10.6) Thou/mm3 Hgb 13.1 L (13.5-16.0) g/dL Hct 39.2 L (41.0-53.0) % Plt Count 230 (140-440) Thou/mm3 BMP 02/06/25 02/06/25 02/06/25 08:51 12:25 15:48 Sodium 148 H 149 H 150 H Potassium Chloride Carbon Dioxide BUN Creatinine Glucose Calcium 02/06/25 02/07/25 19:34 05:07 Sodium 142 147 H Potassium 4.2 Chloride 109 H Carbon Dioxide 29.1 BUN 20 Creatinine 1.2 D Glucose 127 H Calcium 8.5 Cardiac Enzymes 02/06/25 Range/Units 12:25 Total Creatine Kinase 39 (34-171) U/L Liver Function 02/07/25 Range/Units 05:07 Total Bilirubin 1.1 (0.3-1.2) mg/dL AST 13 (0-34) U/L ALT 23 (10-49) U/L Alkaline Phosphatase 67 (46-116) U/L Albumin 3.4 (3.4-4.8) gm/dL Assessment & Plan Additional Assessment & Plan Additional Plan: 69-year-old male with no significant past medical history presented to the hospital with chief complaints of lower abdominal pain and decreased urine output. # JORGE LUIS 2/2 to obstruction/prostamegaly --after Boone catheter was inserted creatinine markedly improved. Patient was started on finasteride, tamsulosin. Needs to follow-up with urology as an outpatient. Urology consultation was requested. # Leukocytosis from underlying obstructive uropathy # BPH-renal ultrasound showed prostate 96 cm consistent with severe prostatomegaly. Needs TURP. Thank you Valerio for allowing me to participate in the care of Mr. Marin
[2025-02-07] MEDS: FINASTERIDE 5 MG TABLET PO (08:30)
[2025-02-07] MEDS: TAMSULOSIN HCL 0.4 MG CAPSULE PO (08:31)
--- NOTE | 2025-02-07 08:46 | ESPR_ITS ---
<Statement entered by Estefany Solitario MD - 02/15/25 08:17> I reviewed above note and agree with findings and plans. I have also personally examined the patient with medicine team and went over assessment and plan with medical team including internet salesperson and resident physician. <Statement entered by Kobe Dyson MD - 02/07/25 16:16> Patient seen and assessed in hospital bed denies having any concerning symptoms at this time. Patient continues to have Eldridge catheter for prostatomegaly causing obstructive uropathy. Patient's kidney function is largely improved but he will require Eldridge catheter upon discharge with voiding trial to be done sometime in 1 week or so. Urology recommendations pending; moreover, nephrology is also on the case regarding the patient's post renal JORGE LUIS along with hypernatremia which is likely related to the patient's condition. Will continue monitoring but expect discharge within the next 24 to 48 hours. I have personally seen and examined the patient. I agree with the resident's assessment and plan as documented below. Kobe Dyson DO PGY-2 Internal Medicine - [facility] Documentation for date of: 02/07/25 Subjective Subjective Interval history: No Overnight events. Labs reviewed and patient examined at the bedside. Patient still awaiting for urology consult for management of prostamegaly that caused postrenal JORGE LUIS. Sodium level increased from 142 to 147 after discontinuing LR IVF. However patient's renal function improving from CR 1.2 to 2.5 and GFR improved to >60 from 27. Patient is currently stable with minimal lower abdominal pain. Denies chest pain, palpation, SOB, N/V, fevers or chills. Exam Vital Signs Temp Pulse Resp BP Pulse Ox O2 Del Method 96.5 F L 57 L 18 121/69 96 Room Air 02/07/25 07:54 02/07/25 07:54 02/07/25 07:54 02/07/25 07:54 02/07/25 07:54 02/07/25 07:54 Narrative Exam General: No acute distress, well nourished, AAO x3 Eye: PERRL, EOMI, normal conjunctiva, no scleral icterus HENT: Normocephalic, atraumatic, hearing intact to conversation at normal volume, moist oral mucosa Neck: Supple, non-tender, no JVD, no lymphadenopathy Lungs: Non-labored respirations, symmetric chest rise, Clear to auscultate bilaterally, No wheezing, rhonchi, crackles Heart: Peripheral pulses intact bilaterally, Regular Rate and Rhythm. Abdomen: Soft, non-distended, no palpable masses, Minimal lower abdominal pain on palpation. Musculoskeletal: Normal range of motion and strength, No cyanosis or edema, No visible joint swelling Skin: Skin is warm, dry, no rashes or lesions. Psychiatric: Cooperative, appropriate mood and affect, Awake and alert, not agitated Neuro: Cranial nerves II-XII grossly intact. Sensations intact to light touch. Objective Labs 02/07/25 05:07 02/07/25 05:07 Labs: Laboratory Results - last 24 hr 02/06/25 02/06/25 02/06/25 08:51 12:25 15:48 WBC RBC Hgb Hct MCV MCH MCHC RDW Std Deviation Plt Count Neut % (Auto) Lymph % (Auto) [place] % (Auto) Eos % (Auto) Baso % (Auto) Neut # (Auto) Lymph # (Auto) [place] # (Auto) Eos # (Auto) Baso # (Auto) Immature Gran # (Auto) Absolute Nucleated RBC Immature Gran % Nucleated RBC % Sodium 148 H 149 H 150 H Potassium Chloride Carbon Dioxide Anion Gap BUN Creatinine Estim Creat Clear Calc eGFR BUN/Creatinine Ratio Glucose Calculated Osmolality Calcium Corrected Calcium Total Bilirubin AST ALT Alkaline Phosphatase Total Creatine Kinase 39 Total Protein Albumin Globulin Albumin/Globulin Ratio 02/06/25 02/07/25 19:34 05:07 WBC 10.1 RBC 4.37 L Hgb 13.1 L Hct 39.2 L MCV 90 MCH 30.0 MCHC 33.4 RDW Std Deviation 41.0 Plt Count 230 Neut % (Auto) 72 Lymph % (Auto) 14 [place] % (Auto) 10 Eos % (Auto) 3 Baso % (Auto) 0 Neut # (Auto) 7.3 Lymph # (Auto) 1.4 [place] # (Auto) 1.0 H Eos # (Auto) 0.3 Baso # (Auto) 0.0 Immature Gran # (Auto) 0.06 H Absolute Nucleated RBC 0.00 Immature Gran % 1 H Nucleated RBC % 0 Sodium 142 147 H Potassium 4.2 Chloride 109 H Carbon Dioxide 29.1 Anion Gap 9 BUN 20 Creatinine 1.2 D Estim Creat Clear Calc 52.8 L eGFR > 60 BUN/Creatinine Ratio 17 Glucose 127 H Calculated Osmolality 297 H Calcium 8.5 Corrected Calcium 9.0 Total Bilirubin 1.1 AST 13 ALT 23 Alkaline Phosphatase 67 Total Creatine Kinase Total Protein 5.9 Albumin 3.4 Globulin 2.5 Albumin/Globulin Ratio 1.4 Quality Measures Quality Measures none Advance care planning discussed with:: patient Assessment & Plan Assessment Current Active Medications: Generic Name Dose Route Start Last Admin Trade Name Freq PRN Reason Stop Dose Admin Acetaminophen 650 mg 02/05/25 16:20 Acetaminophen 325 Mg Tablet PO 03/07/25 16:19 Q6H PRN Fever >101.5 Finasteride 5 mg 02/05/25 18:30 02/07/25 08:30 Finasteride 5 Mg Tablet PO 03/07/25 18:29 5 mg QDAY ANDREA Administration Ondansetron HCl 4 mg 02/05/25 16:20 Ondansetron Inj 2 Mg/Ml Inj 2 Ml IVP 03/07/25 16:19 Q6H PRN NAUSEA OR VOMITING Protocol Sennosides 1 tab 02/06/25 09:00 02/07/25 08:31 Senna Tablet PO 03/08/25 08:59 1 tab QDAY ANDREA Administration Protocol Tamsulosin HCl 0.4 mg 02/05/25 18:30 02/07/25 08:31 Tamsulosin Hcl 0.4 Mg Capsule PO 03/07/25 18:29 0.4 mg QDAY ANDREA Administration Plan A 69-year-old male with no significant past medical history presented to the hospital with chief complaints of lower abdominal pain and decreased urine output. # JORGE LUIS, Post renal - Resolving # Prostamegaly - Presented with chief complaints of lower abdominal pain and decreased urine output. - Noted to have urinary problems since many months but does not want to follow- up with any doctor. Since last week, patient noted to have urinary retention and was able to urinate very minimal amount and also started to develop abdominal pain which got worsened for which patient went to see primary care doctor in [facility]. - Patient was noted to have severe abdominal distention and tenderness for which she was referred to our emergency department. - In the ED, Eldridge catheter was placed following which 1.1 L of urine is drained and noted to have significant improvement in the abdominal pain - Vitals at the time of admission are stable except for mildly elevated blood pressures 142/89 mmHg - Labs at the time of admission are significant for WBC 15.5, sodium 134, bicarb 19.4, BUN 79, creatinine 9, eGFR:6, glucose 141 - Abdomen/pelvis CT Showed minimal bilateral hydronephrosis, likely secondary to distended urinary bladder. Noted significant prostamegaly -02/06: BUN: 45, Cr: 2.5, eGFR:27, Urine Output: 6.3 L -Currently, BN: 20, Cr:1.2, eGFR: >60 -Renal US (02/05/2025): Minimal left hydronephrosis, Mild right moderate left renal scarring, Significant prostatomegaly, consider transrectal prostate sonography follow-up Plan - Will continue Eldridge catheter - Strict intake and output - Will continue to monitor renal functions - Started on tamsulosin 0.4 mg daily and finasteride 5 mg daily - Will avoid nephrotoxic medications and renally dose medications -Consulted Urology, Dr. Monte, Appreciate recommendations #Hypernatremia -Patient had Na of 134 on admission -Patient Na level increasd from 142 to 147 after LR IVF discontinued. -Likely due to rapid decompression of kidney from eldridge draining 6.3L of urine causing osmotic diuresis. As patient is losing large amounts of free water from the urine, this have caused rapid hpernatremia. -NS IVF may have contributed to the hypernatremia. Plan: -Na spike likely due to LF IVF discontinuation -Patient's kidney function is improving. Will continue to monitor. # Metabolic acidosis- Resolved - Bicarb at the time of admission is 19.4 - Likely from the JORGE LUIS Plan -Will continue to monitor renal functions # Leukocytosis - Resolving - WBC at the time of admission is 15.5 - Patient does not have any symptoms suggestive of infection, likely reactive in the setting of the pain and urinary retention Plan - Will continue to monitor CBC Hospital Maintenance: Dispo: Medsurg DVT ppx: SCD GI ppx: not needed Diet: Renal IV lines: Peripheral Code status: Full Assessment and plan discussed with my attending physician Dr. Solitario and Dr. Dyson, PGY-2 Dr. Camarena (PGY-1) - Internal medicine resident
[2025-02-07 12:00] VITALS: BP 99/54; PULSE 63; RESP 18; TEMP 36.4; O2SAT 97
[2025-02-07 16:05] VITALS: BP 112/56; PULSE 69; RESP 18; TEMP 36.5; O2SAT 96
[2025-02-07 20:00] VITALS: BP 111/72; PULSE 72; RESP 18; TEMP 36.2; O2SAT 96
[2025-02-08] VITALS: BP 111/60; PULSE 71; RESP 18; TEMP 36.2; O2SAT 95
[2025-02-08 04:00] VITALS: BP 113/69; PULSE 62; RESP 18; TEMP 36.5; O2SAT 97
[2025-02-08 06:06] LABS: Alanine Aminotransferase 27 U/L (10-49); Albumin, Serum 3.6 gm/dL (3.4-4.8); Albumin/Globulin Ratio 1.4 (1.2-2.2); Alkaline Phosphatase 69 U/L (46-116); Anion Gap 10 (7-16); Aspartate Amino Transferase 15 U/L (0-34); BUN/Creatinine Ratio 18 Ratio (12-20); Bilirubin,Total 0.8 mg/dL (0.3-1.2); Blood Urea Nitrogen 22 mg/dL (9-23); Calcium 8.9 mg/dL (8.3-10.6); Calcium (Corrected) 9.2 mg/dL (8.5-10.1); Carbon Dioxide 26.9 mMol/L (20.0-31.0); Chloride 107 mMol/L (98-107); Creatinine (Component) 1.2 mg/dL (0.6-1.3); Estimated Creatinine Clearance 52.8 mL/min (>60); Globulin 2.6 gm/dL (2.3-3.5); Glucose 123 mg/dL (74-106); Osmolality,Calculated 291 (275-295); Potassium 4.1 mMol/L (3.4-5.1); Sodium 144 mMol/L (136-145); Total Protein 6.2 gm/dL (5.7-8.2); eGFR > 60 See Note
[2025-02-08 08:00] VITALS: BP 121/92; PULSE 68; RESP 17; TEMP 36.6; O2SAT 96
[2025-02-08] MEDS: TAMSULOSIN HCL 0.4 MG CAPSULE PO (08:31)
[2025-02-08] MEDS: FINASTERIDE 5 MG TABLET PO (08:31)
--- NOTE | 2025-02-08 09:30 | ESPR_ITS ---
Documentation for date of: 02/08/25 Subjective Subjective Interval history: Mr. Marin is a 69-year-old male with no significant past medical history presented to the hospital with chief complaints of lower abdominal pain and decreased urine output. Patient does not follow any primary care provider and does not take any medication. He was noted to have urinary problems since many months but does not want to follow-up with any doctor. Since last week, patient noted to have urinary retention and was able to urinate very minimal amount and also started to develop abdominal pain which got worsened for which patient went to see primary care doctor in [facility]. Patient was noted to have severe abdominal distention and tenderness for which she was referred to our emergency department. In the ED, Boone catheter was placed following which 1.1 L of urine is drained and noted to have significant improvement in the abdominal pain ED course: - Vitals at the time of admission are stable except for mildly elevated blood pressures 142/89 mmHg - Labs at the time of admission are significant for WBC 15.5, sodium 134, bicarb 19.4, BUN 79, creatinine 9, glucose 141 - Abdomen/pelvis CT Showed minimal bilateral hydronephrosis, likely secondary to distended urinary bladder. Noted significant prostamegaly -Patient is admitted in the hospital for JORGE LUIS, likely secondary to obstructive uropathy from BPH Renal consultation requested for JORGE LUIS. Patient currently seen in medical floor. Since last night to now the creatinine markedly improved after Boone catheter was inserted. Renal ultrasound showed 96 cm prostate which is consistent with severe enlarged prostate. 02/08/2025 patient currently seen in medical floor. Good amount of urine with the Boone catheter. Was started on finasteride and Flomax. Creatinine normalized to 1.2. Renal valdez stable for discharge. Spoke to primary team. Review of Systems Review of Systems Narrative Review of Systems: CONSTITUTIONAL: Patient denies any fever, chills. HEENT: Denies any visual disturbances or hearing problems. CARDIOVASCULAR: Patient denies any chest pain, shortness of breath, swelling in the lower extremities. PULMONARY: Patient denies any shortness of breath, cough. GASTROINTESTINAL: Patient denies any abdominal pain, constipation, nausea, vomiting, diarrhea. GENITOURINARY: Complaining of urinary retention SKIN: Denies any rash. MUSCULOSKELETAL: Denies any muscular skeletal problems of joint pains. NEUROLOGICAL: Denies any neurological problems of strokes, seizures or confusion. Denies any memory problems. PSYCHIATRIC: Denies any depression or anxiety. LYMPHATICS : No lymphadenopathy Exam Vital Signs Temp Pulse Resp BP Pulse Ox O2 Del Method 36.6 C 68 17 121/92 H 96 Room Air 02/08/25 08:00 02/08/25 08:00 02/08/25 08:00 02/08/25 08:00 02/08/25 08:00 02/08/25 08:00 Narrative Exam GENERAL APPEARANCE: Patient seems to be comfortable, adequately hydrated and nourished. HEENT: EOMI, PERRLA NECK: Neck supple, no JVD or bruit CARDIOVASCULAR: Heart regular, no murmurs LUNGS/CHEST: Chest clear to auscultation. No rales, rhonchi, wheezing ABDOMEN: Soft, nontender, nondistended. No masses. Normal bowel sounds. Patient has Boone catheter EXTREMITIES: No edema, clubbing or cyanosis. SKIN: Skin exam normal without any rashes MUSCULOSKELETAL: Musculoskeletal exam normal PSYCHIATRIC: Normal mood, affect LYMPHATICS: No lymphadenopathy noted NEUROLOGICAL : No neurological deficits Objective Labs 02/07/25 05:07 02/08/25 05:00 Labs: Laboratory Results - last 24 hr 02/08/25 05:00 Sodium 144 Potassium 4.1 Chloride 107 Carbon Dioxide 26.9 Anion Gap 10 BUN 22 Creatinine 1.2 Estim Creat Clear Calc 52.8 L eGFR > 60 BUN/Creatinine Ratio 18 Glucose 123 H Calculated Osmolality 291 Calcium 8.9 Corrected Calcium 9.2 Total Bilirubin 0.8 AST 15 ALT 27 Alkaline Phosphatase 69 Total Protein 6.2 Albumin 3.6 Globulin 2.6 Albumin/Globulin Ratio 1.4 Assessment & Plan Additional Assessment & Plan Additional Plan: 69-year-old male with no significant past medical history presented to the hospital with chief complaints of lower abdominal pain and decreased urine output. # JORGE LUIS 2/2 to obstruction/prostamegaly --after Boone catheter was inserted creatinine markedly improved. Patient was started on finasteride, tamsulosin. Needs to follow-up with urology as an outpatient. Renal valdez stable for discharge. # Leukocytosis from underlying obstructive uropathy # BPH-renal ultrasound showed prostate 96 cm consistent with severe prostatomegaly. Needs TURP. Thank you Estefany for allowing me to participate in the care of Mr. Marin Quality - progress note Quality Measures Quality Measures: VTE prophylaxis Reason for Continued Stay Reason for Continued Stay: further monitoring
[2025-02-08 12:00] VITALS: BP 125/80; PULSE 67; RESP 18; TEMP 36.6; O2SAT 97
--- NOTE | 2025-02-08 14:00 | ESDS_ITS ---
<Statement entered by Estefany Solitario MD - 02/15/25 08:18> I reviewed above note and agree with findings and plans. I have also personally examined the patient with medicine team and went over assessment and plan with medical team including international student advisor and resident physician. Planned Discharge Date 02/08/25 DS: Providers Provider Date of admission: 02/05/25 16:21 Primary care physician: Tomas Mantilla MD Admitting Provider: Bobby Calixto DO Attending Provider on Admission: Estefany Solitario MD Consults: 02/06/25 10:18 Consult to Nephrology Routine Comment: obstructive, post-renal likely etiology Consulting Provider: Yaima Zepeda 02/06/25 13:13 Consult to Urology Routine Comment: Prostatomegaly, eldridge in Consulting Provider: Alina Monte Attending Provider on DC: Francisco Camarena DO Discharging Provider: Francisco Camarena DO DS: Diagnosis Problem List Completed Was Problem List Reviewed/Reconciled?: Yes Hospital Course Hospital Course Hospital course: Summary: A 69-year-old male with no significant past medical history presented to the hospital with chief complaints of lower abdominal pain and decreased urine output. Patient was admitted on 01/26/2025 for Urinary retention and post renal JORGE LUIS. CT A/P scan showed prostamegaly and prostate size of 99cc in renal US. Patient was put on eldridge catheter with IVF, resolving patient?s JORGE LUIS and urinary retention. Patient was discharged with temporary eldridge with instructions to follow up with urologist as soon as possible for management of severe prostame tobias. ED course: - Vitals at the time of admission are stable except for mildly elevated blood pressures 142/89 mmHg - Labs at the time of admission are significant for WBC 15.5, sodium 134, bicarb 19.4, BUN 79, creatinine 9, glucose 141 - Abdomen/pelvis CT Showed minimal bilateral hydronephrosis, likely secondary to distended urinary bladder. Noted significant prostamegaly -Patient is admitted in the hospital for JORGE LUIS, likely secondary to obstructive uropathy from BPH Hospital Course: Upon admission, patient was put on Eldridge catheter, started on tamsulosin 0.4 mg daily and finasteride 5 mg daily. Was just given normal saline IVF 85 mL/h. Patient had leukocytosis with WBC count of 15.5 which is likely to be reactive instead of infection. Patient had metabolic acidosis with bicarb of 19.4 on admission which likely have been caused from JORGE LUIS. The next day Eldridge bag showed clear yellow urine with a urinary output of 6.3 L. Patient's creatinine decreased from 9.0 to 2.5 and eGFR increased from 6 to 27, and BUN 45. On CT abdomen and pelvis patient was found to have prostamegaly which likely have caused the urinary retention and postrenal JORGE LUIS. Renal US showed prominent prostaomegaly with 99cc with no prostate nodule. Patient had hypernatremia with Na 149, so patient's IV fluids changed from normal saline to lactated Ringer's 75 mL/h. The next day patient's creatinine decreased to 1.2 and GFR increased to >60 and patient was complaining minimal lower abdominal pain. On the day of discharge patient's WBC: 10.1, sodium level 144, BUN 22, creatinine 1.2, eGFR >60, and urine output of 3.3 L. With clear yellow urine on the Eldridge bag. Instructions given to follow up with urologist for management of severe prostamegaly. Instructions: Please take finasteride 5 mg tablet by mouth daily and tamsulosin 0.4 mg capsule by mouth daily for enlarged prostate Follow-up with Urology within 1 week for removal of Eldridge catheter and voiding trial Your prostate measure >90cc you will most likely need TURP (Transurethral Resection of the Prostate) procedure Follow-up with your Primary Care Provider within 1 week or follow-up at the [facility] [address] [place], [place] [id number] If your symptoms worsen or if you develop new chest pain, shortness of breath, fever, difficulty or painful urination - please come back to the ED immediately. [place] dora tableta de finasterida de 5 mg por v?a oral a diario y dora c?psula de tamsulosina de 0,4 mg por v?a oral a diario para el agrandamiento de pr?stata. Consulte con Urolog?a en el plazo de dora semana para la extracci?n de la sonda Eldridge y dora prueba de micci?n. Si dorado pr?stata mide m?s de 90 cc, lo m?s probable es que necesite dora resecci?n transuretral de pr?stata (RTUP). Consulte con dorado m?dico de cabecera en el plazo de dora semana o en el [facility], [address], [place] [address] [phone]. Si wilmer s?ntomas empeoran o presenta dolor en el pecho, dificultad para respirar, fiebre, dificultad o dolor al orinar, regrese a urgencias de inmediato. Stable to return home #Obstructive Uropathy #JORGE LUIS, Post renal - Resolving #Prostamegaly, 99cc #Hypernatremia #Metabolic acidosis- Resolved #Leukocytosis - Resolving Status at Discharge Overall status at discharge: patient is back to baseline Time Spent with Patient Time attestation: Total time spent providing and/or coordinating discharge services: Time spent: Greater than 30 minutes Exam Vital Signs Temp Pulse Resp BP Pulse Ox O2 Del Method 97.8 F 67 18 125/80 97 Room Air 02/08/25 12:00 02/08/25 12:00 02/08/25 12:00 02/08/25 12:00 02/08/25 12:00 02/08/25 12:00 Narrative Exam General: No acute distress, well nourished, AAO x3 Eye: PERRL, EOMI, normal conjunctiva, no scleral icterus HENT: Normocephalic, atraumatic, hearing intact to conversation at normal volume, moist oral mucosa Neck: Supple, non-tender, no JVD, no lymphadenopathy Lungs: Non-labored respirations, symmetric chest rise, Clear to auscultate bilaterally, No wheezing, rhonchi, crackles Heart: Peripheral pulses intact bilaterally, Regular Rate and Rhythm. Abdomen: Soft, non-distended, no palpable masses, Minimal lower abdominal pain on palpation. Musculoskeletal: Normal range of motion and strength, No cyanosis or edema, No visible joint swelling Skin: Skin is warm, dry, no rashes or lesions. Psychiatric: Cooperative, appropriate mood and affect, Awake and alert, not agitated Neuro: Cranial nerves II-XII grossly intact. Sensations intact to light touch. Discharge Plan Plan Patient Disposition: HOME (Self Care) Patient condition on transfer: Stable Care Plan Goals: Please take finasteride 5 mg tablet by mouth daily and tamsulosin 0.4 mg capsule by mouth daily for enlarged prostate Follow-up with Urology within 1 week for removal of Eldridge catheter and voiding trial Your prostate measure >90cc you will most likely need TURP (Transurethral Resec tion of the Prostate) procedure Follow-up with your Primary Care Provider within 1 week or follow-up at the [facility] [address] [place], [place] [id number] If your symptoms worsen or if you develop new chest pain, shortness of breath, fever, difficulty or painful urination - please come back to the ED immediately. [facility] dora tableta de finasterida de 5 mg por v?a oral a diario y dora c?psula de tamsulosina de 0,4 mg por v?a oral a diario para el agrandamiento de pr?stata. Consulte con Urolog?a en el plazo de dora semana para la extracci?n de la sonda Eldridge y dora prueba de micci?n. Si dorado pr?stata mide m?s de 90 cc, lo m?s probable es que necesite dora resecci?n transuretral de pr?stata (RTUP). Consulte con dorado m?dico de cabecera en el plazo de dora semana o en el [facility] [place], [address], [place], [place] [id number] . Si wilmer s?ntomas empeoran o presenta dolor en el pecho, dificultad para respirar, fiebre, dificultad o dolor al orinar, regrese a urgencias de inmediato. Prescriptions/Referrals Prescriptions/Med Rec: New tamsulosin 0.4 mg Capsule 0.4 mg PO QDAY 30 Days Qty: 30 0RF finasteride 5 mg Tablet 5 mg PO QDAY 30 Days Qty: 30 0RF Referrals: Alina Monte MD [Physician, Urology] Tomas Mantilla MD [Primary Care Provider, Family Practice] Patient/Caregiver Discharge Instructions Education Materials: Prostate Anatomy, Benign Prostatic Hyperplasia Print Language: Chinese Stand Alone Forms: She Award Info., Patient Portal Info Letter Discharge Order Discharge Orders: Discharge (Routine); Ordered 02/08/25 Ordered By: Kobe Dyson Quality Discharge Quality Measures VTE prophylaxis
--- NOTE | 2025-02-08 15:12 | PC.SS ---
Follow up note: SS met with pt and dtr who are aware pt requires to follow up with PCP. Dtr confirms she will arrange PCP appointment.
--- NOTE | 2025-02-11 08:20 | UCCONSULT_ITS ---
RE: THAO DIAZ : 1955 DATE OF CONSULTATION: 02/06/2025 CHIEF COMPLAINT: 1. Obstructive urinary symptom. 2. Urinary retention. HISTORY OF PRESENT ILLNESS: The patient is seen, chart is reviewed, consult is dictated. This is a Nepali speaking gentleman. I had the inspector firearms with me. This patient has history of recurrent urinary obstructive symptom. Two year ago he had the same situation with frequency, slow urinary stream, suprapubic pressure, but he got better. This time he noted to have urinary retention and he was urinating very little and he started having abdominal discomfort which got worse, he went to see his PCP in [facility] and he was sent to emergency room. He had a placement of catheter. He had more than 1000 mL urine. Denies any prostatic surgery before. He has no family history of prostate cancer. Past medical history, family history, review of the system, personal history, please refer to the patient history form dated 02/05/2025, it is in HPI, in EMR. PHYSICAL EXAMINATION: General: Condition is satisfactory. Orientation x3. HEENT: Normocephalic and atraumatic. Eyes, no anemia or jaundice. The patient is not in acute distress. Chest: Symmetrical. Heart: Regular rate and rhythm. Abdomen: Soft, nontender. No masses. Liver, spleen, kidney not palpable. No CVA tenderness. He has indwelling Boone catheter. VARIOUS LABS: His WBC at the time of admission is 15.5, hemoglobin is 14.6, hematocrit is 42.9. BUN is 79 and serum creatinine is 9.0. Urine is negative for any infection. IMPRESSION: 1. Benign prostatic hypertrophy with urinary obstruction and lower urinary tract symptoms. 2. Acute kidney injury as a result of urinary retention and prostatic obstruction. He had CAT scan of the abdomen and pelvis reviewed by me which revealed minimal bilateral hydronephrosis as a result of urinary retention. He has a very large residual urine and has the decompensated bladder PLAN: 1. Tamsulosin 0.4 mg p.o. daily to be taken at night time half and hour after food. 2. Finasteride 5 mg p.o. daily. 3. Continue with catheter drainage for another 5 days. He had a decompensated bladder. It is going to take time for it to re-compensate. Check his CMP to make sure his kidney functions are returning back to normal and he will have a followup appointment with me in urology office. I will order his PSA and we will do ultrasound of the prostate gland in the office and he may need a cystoscopic examination. If his prostate gland is very big and he does not have a prostate cancer, then he may need Aquablation. On appropriate shoes were discussed with the patient in detail questions answered to his satisfaction he verbalized understanding all above issues were discussed with the patient in great detail question answered to his and his family satisfaction they will call my office to make an appointment for follow-up visit DT: 16:24:32 TT: 18:41:00 Ref: [id number] - TID: [id number] [email or web address]
== END 2025-02-08 15:16 | disposition home or self-care (01) | DRG 683 ==
LOC: SERX 16:14 → SERHOLD 16:34 → S3NX 19:30
PROVIDERS: Nurse Practitioner Family; Admitting Provider Student in an Organized Health Care Education/Training Program; Emergency Provider Family Medicine; PCP Family Medicine; Visit Provider Internal Medicine
DX: N17.9 Acute kidney failure, unspecified (principal); E87.0 Hyperosmolality and hypernatremia; E87.20 Acidosis, unspecified; N13.8 Other obstructive and reflux uropathy; N40.1 Benign prostatic hyperplasia with lower urinary tract symptoms; N13.30 Unspecified hydronephrosis; D72.829 Elevated white blood cell count, unspecified; Z79.899 Other long term (current) drug therapy
CPT/HCPCS: 36415; 74176; 76770; 80053; 80061; 81001; 82550; 83690; 83735; 84100; 84295; 84443; 85025; 87086; 96360; 96361; 99284; J7030; J7120; A9270

== ENCOUNTER 2025-02-17 10:47 | Emergency (ER) | payer MEDICARE, SELFPAY ==
[2025-02-17 11:13] VITALS: BP 124/72; PULSE 90; RESP 19; TEMP 36.8; O2SAT 96
--- NOTE | 2025-02-17 11:31 | PD.EDRME ---
Rapid Medical Screening Exam RME Arrival date/time: 02/17/25 10:47 Chief Complaint: Urogenital-Male Time Seen by Provider: 02/17/25 11:22 Vital signs: Vital Signs Temperature 98.2 F 02/17/25 11:13 Pulse Rate 90 02/17/25 11:13 Respiratory Rate 19 02/17/25 11:13 Blood Pressure 124/72 02/17/25 11:13 Pulse Oximetry (%) 96 02/17/25 11:13 Oxygen Delivery Method Room Air 02/17/25 11:13 Vital signs reviewed by provider: Yes RME Narrative: Patient had Boone catheter placed last week for BPH, Boone catheter removed yesterday in office however now he has recurrent bladder fullness and has been unable to urinate. Denies fever vomit.
[2025-02-17 11:33] VITALS: BMI 25.7
--- NOTE | 2025-02-17 11:34 | EDNOTE_ITS ---
ED Male Genitalurinary RME/HPI General Chief complaint: Urogenital-Male Stated complaint: UNABLE TO URINATE Time Seen by Provider: 02/17/25 11:22 Arrival date/time: 02/17/25 10:47 RME / HPI RME / HPI Narrative: Patient had Boone catheter placed last week for BPH, Boone catheter removed yesterday in office however now he has recurrent bladder fullness and has been unable to urinate. Denies fever vomit. DR. POPE MAIN ED EVALUATION: 69-year-old male with a recent hospitalization for urinary retention presenting to the Emergency Department with recurrence of inability to urinate since last night. The patient had a Boone catheter placed during his prior admission, which was removed a few days ago due to discomfort and irritation with movement and clothing. Since then, he was urinating until last night when he again became unable to void. No associated fever, chills, nausea, or vomiting reported. Related Data Previous Rx's ?Medication ?Instructions ?Recorded finasteride 5 mg tablet 5 mg PO QDAY 1 month #30 tab s 02/07/25 tamsulosin 0.4 mg capsule 0.4 mg PO QDAY 1 month #30 c aps 02/07/25 sulfamethoxazole 800 1 tab PO BID 7 days #14 tabs 02/17/25 mg-trimethoprim 160 mg tablet (Bactrim DS) Allergies Allergy/AdvReac Type Severity Reaction Status Date / Time No Known Allergies Allergy Verified 02/17/25 10:50 ED Exam Narrative Physical exam: Constitutional: Awake, alert, mild discomfort noted. HEENT: Normocephalic, atraumatic, extraocular movements intact. Neck: Supple CV: Regular rate and rhythm, no murmurs/rubs/gallops Lungs: Clear to auscultation BL, no respiratory distress. Abd: Distended, tender over suprapubic area with palpable enlarged bladder, no rebound or guarding. Extremities: No deformities, no edema noted Neuro: AAOx3, no acute neuro deficit noted. Skin: Warm, dry, intact Course Quality Measures none Orders Category Date Time Status Bladder Scan NEEDED Care 02/17/25 11:29 Active Boone [Urinary Catheter] QS Care 02/17/25 11:31 Active Boone to Leg Bag Routine Care 02/17/25 11:30 Ordered Boone to Leg Bag Routine Care 02/17/25 11:31 Ordered UA, C/S IF [Urinalysis, C/S if Indicated] Stat Lab 02/17/25 11:49 Completed Urine Culture Stat Lab 02/17/25 11:49 Received [id number] [Rocephin] 1,000 mg Med 02/17/25 13:29 Discontinued Lidocaine 1% 20 ml [Xylocaine 1% 20 ML] 2.1 ml IM X1 Vital Signs Vital signs: Vital Signs Temperature 98.2 F 02/17/25 11:13 Pulse Rate 90 02/17/25 11:13 Respiratory Rate 19 02/17/25 11:13 Blood Pressure 124/72 02/17/25 11:13 Pulse Oximetry (%) 96 02/17/25 11:13 Oxygen Delivery Method Room Air 02/17/25 11:13 Urogenital - Male MDM Narrative MDM Narrative:: IMaddie am scribing for and in the presence of Dr. Pope. 1335h: Checked on patient, much improved, 1500 mL urine out after catheter placement. Will treat for UTI given urinalysis findings. Stable for discharge home. To follow-up with PCP outpatient. Patient data External records reviewed:: [facility] previous records Clinical information provided by:: patient and family (daughter) Social determinants that could affect healthcare access:: none Patient has the following chronic illnesses:: Recent hospitalization for urinary retention and had a Boone catheter placed at that time. No other PMHx. How is presenting disease/condition affected by chronic disease/condition?: caused by Evaluation data The following diagnostics were reviewed and interpreted by me:: lab results Lab and/or radiology exams considered but not ordered:: none Interpretation Summary: as above Medications / Prescriptions Medications or Prescriptions considered but not ordered:: none Medication administrations:: Medication Administration History Discontinued Medications Ceftriaxone Sodium 1,000 mg/ (Lidocaine HCl 2.1 ml) 0 mg IM X1 ONE Stop: 02/17/25 13:30 as above Consultations Consultation(s) initiated? (list below): No Diagnosis Urogenital Male Differential Diagnosis: urinary tract infection, acute retention of urine and other (BPH with bladder outlet obstruction, urinary retention, UTI, neurogenic bladder.) Most likely diagnosis given after review of the tests above:: Acute urinary retention, UTI Admission Indicated Admission indicated?: not indicated Admission Request Was there a request for admission?: No Disposition Plan Disposition Plan: Discharge Discharge Attestation Discharge Attestation: The patient and all family members were given an opportunity to ask questions and understood the discharge instructions. Discharge instructions specifically effects, indications for sooner follow up or return to the emergency department, and the expected course of current diagnosis. Patient condition: Stable Discharge Plan Plan Patient Disposition: HOME (Self Care) Patient condition on transfer: Stable Prescriptions/Referrals Prescriptions/Med Rec: New sulfamethoxazole-trimethoprim [Bactrim DS] 800-160 mg tablet 1 tab PO BID 7 Days Qty: 14 0RF No Action tamsulosin 0.4 mg Capsule 0.4 mg PO QDAY 30 Days Qty: 30 0RF finasteride 5 mg Tablet 5 mg PO QDAY 30 Days Qty: 30 0RF Problem List Clinical Impression: Obstruction, uropathy, Urinary tract infection Patient/Caregiver Discharge Instructions Education Materials: Emptying and Cleaning Your ..., ED Boone Catheter, Care, ED Bladder Infection, Male (Adult) Print Language: Belarusian Stand Alone Forms: She Award Info., Patient Portal Info Letter
[2025-02-17 11:53] LABS: Collection Type, Urine Catheter; Squamous Epithelial Cell,Urine 0 /hpf (0-5)
[2025-02-17 12:27] LABS: Bacteria,Urine 1+; Bilirubin,Urine Negative (Negative); Blood,Urine 1+ (Negative); Clarity,Urine Turbid (Clear/Hazy); Color,Urine Yellow (Lt Yel-Yel); Glucose, Urine Negative (Negative); Ketones,Urine Negative (Negative); Leukocyte Esterase,Urine Positive (Negative); Nitrite,Urine Positive (Negative); PH,Urine 6.0 (5.0-7.0); Protein,Urine Negative (Neg - Trace); RBC,Urine 16 /hpf (0-3); Specific Gravity,Urine 1.014 (1.001-1.035); Urobilinogen,Urine Negative mg/dL (0.0-1.0); WBC,Urine 389 /hpf (0-5)
[2025-02-17 12:33] LABS: Culture Indicated,Urine Yes
--- NOTE | 2025-02-17 13:43 | PC.LAC ---
[facility] UROMETER CHANGED TO LEG BAG AT THIS TIME.
[2025-02-17] MEDS: cefTRIAXone 1,000 MG, LIDOCAINE 1% 20 ML 2.1 ML IM (13:46)
== END 2025-02-17 13:48 | disposition home or self-care (01) ==
LOC: SERX 13:53
PROVIDERS: Physician Assistant; Emergency Provider Family Medicine; PCP Internal Medicine Nephrology
DX: N13.9 Obstructive and reflux uropathy, unspecified (principal); N39.0 Urinary tract infection, site not specified; N40.1 Benign prostatic hyperplasia with lower urinary tract symptoms
CPT/HCPCS: 51702; 81001; 87077; 87086; 87186; 96372; 99284; A4314; J0696; J3490

== ENCOUNTER → 2025-03-25 | Outpatient (BNVA) | payer MEDICARE, SELFPAY | END | disposition home or self-care (01) | PROVIDERS: PCP Family Medicine; Referring Provider Family Medicine; Visit Provider Urology | DX: N40.1 Benign prostatic hyperplasia with lower urinary tract symptoms (principal); N13.8 Other obstructive and reflux uropathy; R33.8 Other retention of urine; N47.2 Paraphimosis; N13.30 Unspecified hydronephrosis; Z46.6 Encounter for fitting and adjustment of urinary device | CPT/HCPCS: 81003; 96372; 99212; J1580; G0463 ==